=== PATIENT | male | born 1940 | race Caucasian/White ===

== ENCOUNTER → 2016-08-14 | Outpatient (CLI) | payer MEDICARE | LOC: GMAL 11:07 | PROVIDERS: ATTEND Family Medicine | DX: Z12.5 Encounter for screening for malignant neoplasm of prostate (principal) ==

== ENCOUNTER → 2016-09-07 | Outpatient (CLI) | payer MEDICARE | END | disposition home or self-care (01) | LOC: GMAL 10:20 | PROVIDERS: ATTEND Family Medicine | DX: R97.20 Elevated prostate specific antigen [PSA] (principal); C61 Malignant neoplasm of prostate ==

== ENCOUNTER → 2016-09-14 | Outpatient (CLI) | payer MEDICARE | END | disposition home or self-care (01) | LOC: GMAL 10:34 | PROVIDERS: ATTEND Family Medicine | DX: E55.9 Vitamin D deficiency, unspecified (principal) ==

== ENCOUNTER → 2016-10-02 | Outpatient (CLI) | payer MEDICARE | END | disposition home or self-care (01) | LOC: GMAL 10:38 | PROVIDERS: ATTEND Family Medicine | DX: R97.20 Elevated prostate specific antigen [PSA] (principal) ==

== ENCOUNTER → 2017-03-12 | Outpatient (CLI) | payer MEDICARE | END | disposition home or self-care (01) | LOC: GMAL 10:28 | PROVIDERS: ATTEND Family Medicine | DX: Z79.899 Other long term (current) drug therapy (principal); Z12.5 Encounter for screening for malignant neoplasm of prostate | CPT/HCPCS: 84402; 84403; G0103 ==

== ENCOUNTER → 2017-09-10 | Outpatient (CLI) | payer MEDICARE | LOC: GMAL 10:33 | PROVIDERS: ATTEND Family Medicine | DX: D51.3 Other dietary vitamin B12 deficiency anemia (principal); E55.9 Vitamin D deficiency, unspecified; R97.20 Elevated prostate specific antigen [PSA] ==

== ENCOUNTER → 2018-03-10 | Outpatient (CLI) | payer MEDICARE | LOC: GMAL 11:38 | PROVIDERS: ATTEND Family Medicine | DX: E55.9 Vitamin D deficiency, unspecified (principal); R97.20 Elevated prostate specific antigen [PSA] ==

== ENCOUNTER → 2018-09-15 | Outpatient (CLI) | payer MEDICARE | LOC: GMAL 10:39 | PROVIDERS: ATTEND Family Medicine | DX: R97.20 Elevated prostate specific antigen [PSA] (principal); E55.9 Vitamin D deficiency, unspecified ==

== ENCOUNTER → 2019-01-13 | Outpatient (CLI) | payer MEDICARE ==
--- NOTE | 2019-01-13 11:35 | US ---
EXAM DESCRIPTION: Venous,Lower Extremity LT (accession [id number]), Venous,Lower Extremity RT (accession [id number]): ULTRASOUND. CLINICAL HISTORY: ATHEROSCLEROSIS COMPARISON: Duplex venous ultrasound right lower extremity deep venous system. Duplex ultrasound bilateral lower extremity arterial system. Also MRI scan lumbar spine on this visit today. TECHNIQUE: Waldrop-scale and doppler sonographic evaluation of the deep venous system of the bilateral lower extremities. FINDINGS: No color flow or waveform is noted in the proximal left superficial femoral vein. The vein demonstrates echogenicity in the lumen, and is not compressible with the transducer. The mid and distal left superficial femoral vein demonstrate decreased venous waveform and color flow and partial compressibility. Echogenic material also noted within the lumen. Smaller venous collaterals are noted around the mid and distal vein. Doppler evaluation shows normal color flow and normal phasicity and augmentation of the left common femoral vein, popliteal vein, peroneal, and posterior tibial vein. These left lower extremity deep veins were completely compressible; normal occlusion with transducer pressure. Waldrop-scale survey showed no echogenic thrombus within these veins. Doppler evaluation shows normal color flow and normal phasicity and augmentation of the right common femoral vein, femoral vein, popliteal vein, peroneal, and posterior tibial vein. The right lower extremity deep veins were completely compressible; normal occlusion with transducer pressure. Waldrop-scale survey showed no echogenic thrombus within these veins. IMPRESSION: 1. Duplex ultrasound evaluation of the left lower extremity, superficial femoral vein, showing echogenic thrombus in the vein predominantly proximal. Mid and distal veins with less thrombus, but also collateral venous flow. This is more likely to represent chronic thrombus in the vein. 2. The remaining veins of the deep venous system in the left lower extremity, and the deep venous system veins in the right lower extremity are unremarkable CRITICAL COMMUNICATION: The critical value was discussed directly by phone with Dr. Jorge Luis Gonzalez at approximately 1130 hours, on 01/13/2019. Electronically signed by: Smith Brody MD 01/13/2019 11:33 AM CDT
--- NOTE | 2019-01-13 11:42 | US ---
EXAM DESCRIPTION: Extremity,Lower Silvio Arteries: Ultrasound. CLINICAL HISTORY: ATHEROSCLEROSIS COMPARISON: None. TECHNIQUE: Doppler evaluation of the bilateral lower extremity arterial flow waveforms and velocities. FINDINGS: Arterial waveforms in the right lower extremity are all triphasic or biphasic.. Arterial waveforms in the left lower extremity are on triphasic or biphasic.. Comments: Good velocities bilaterally. IMPRESSION: Ultrasound Doppler evaluation of the bilateral lower extremity arterial systems showing no evidence of significant atherosclerotic occlusive disease. Electronically signed by: Smith Brody MD 01/13/2019 11:40 AM CDT
--- NOTE | 2019-01-14 12:04 | MRI ---
EXAM DESCRIPTION: Lumbar Spine w/o Contrast : Magnetic Resonance Imaging. CLINICAL HISTORY: RADICULOPATHY OF LUMBAR REGION COMPARISON: LUMBAR TECHNIQUE: Multiplanar, multiple standard sequences, non contrast MRI, lumbar spine. FINDINGS: L5-S1: Anterior disc space is imaged on axial T2 series 501, image 3. Modified disc space loss. Grade 1 retrolisthesis 3 mm with broad-based disc bulge. Minimal anterior bulge. AP canal diameter 13 mm. With spondylosis on the right with disc spur complex encroaching on the right foramen and the exiting right L5 nerve. Moderate narrowing of the left foramen. Minimal posterior flavum ligament thickening. L4-L5: Severe posterior disc space loss with endplate irregularities. Anterior disc bulge. Posterior disc osteophyte bulge into the canal more to the right of midline with hypertrophy of the right facet resulting in stenosis of the right subarticular recess. Hypertrophic left facet arthrosis and thickening of the ligament with narrowing of the left subarticular recess. Advanced spondylosis to the left of midline with disc spur complex encroaching on the left foramen and abutting the exiting left L4 nerve. Mild spondylosis on the right and moderate narrowing of the right neural foramen. L3-L4: Significant posterior disc space narrowing with trace retrolisthesis. Moderate to advanced midline and left paracentral spondylosis. Anterior disc bulge and spurs more prominent to the left of midline. Disc osteophyte complex narrowing the left foramen. Moderate narrowing of the right foramen. Bilateral mild facet arthrosis and hypertrophy and posterior ligament thickening. Mild canal narrowing. L2-L3: Marked disc space loss nearly fused on the left. Trace retrolisthesis. Anterior disc marginal spurs and bulging. Inferior L2 endplate circumscribed hyperintense T1 and T2 object consistent with a hemangioma. Left facet hypertrophic arthrosis and thickening of the ligament with moderate narrowing of the left foramen. Mild narrowing of the right foramen. L1-L2: Moderate disc space loss mostly in the midline with inferior L1 Schmorl's node. Moderate spondylosis. Anterior disc bulge with endplate ridging. Minimal posterior disc osteophyte bulge. Bilateral hypertrophic facet arthrosis and thickened ligaments with mild canal narrowing. Mild narrowing left foramen and moderate narrowing right foramen. Conus terminates at this level with normal signal. T12-L1: Disc desiccation with endplate Schmorl's nodes in the midline into the right of midline. Anterior disc bulge and endplate ridging to the right of midline. Minimal bilateral facet arthrosis and ligament hypertrophy. Mild canal narrowing. Bilateral foramina are patent. Normal signal in the distal cord. L2-L5 dextroscoliosis. T11- L2, and L5-S1 levoscoliosis L1-L3 kyphosis.. Paravertebral soft tissues muscle atrophy more inferiorly and also on the left side of the L4 vertebral body.. Inhomogeneous marrow signal in most of the vertebral bodies and the posterior elements. No abnormal marrow edema signal. Vertebral bodies are not compressed at any level. IMPRESSION: 1. Moderate scoliosis. Multiple levels of moderate spondylosis, disc space loss, disc desiccation, hypertrophic facet arthrosis and flavum ligament thickening. 2. Spondylosis on the right at L5-S1 with disc spur complex encroaching on the right foramen and the exiting right L5 nerve. 3. Left side disc spur complex at L4-L5 encroaching on the left foramen and abutting the left L4 nerve. Right posterior disc spur complex in the canal creating right subarticular recess stenosis, possible compromise descending right L5 nerve. 4. Diffuse marrow inhomogeneity which may be a result of marrow reconversion which can be related to smoking and chronic illness and metabolic disease. Electronically signed by: Smith Brody MD 01/14/2019 12:02 PM CDT
== END ==
LOC: US 09:00
PROVIDERS: ATTEND Family Medicine
DX: M54.16 Radiculopathy, lumbar region (principal); I70.219 Atherosclerosis of native arteries of extremities with intermittent claudication, unspecified extremity; I82.412 Acute embolism and thrombosis of left femoral vein

== ENCOUNTER → 2019-01-30 | Outpatient (CLI) | payer MEDICARE ==
--- NOTE | 2019-01-30 17:34 | MRI ---
EXAM DESCRIPTION: Cervical Spine CLINICAL HISTORY: Cervicalgia COMPARISON: None Available. TECHNIQUE: MRI of the cervical spine is performed according to our usual protocol. FINDINGS: Sagittal T2 images reveal decreased signal intensity within the intervertebral discs with loss of disc height consistent with advanced disc degeneration at C4-5, C5-6 and C6-7 and upper thoracic disc levels. Degenerative retrolisthesis of C4 on C5 measures 3 mm. Normal T2 appearance of the cervical cord. Posterior discal abnormalities are most prominent at the C4-5 and C6-7 levels. Sagittal T1 images show benign marrow signal characteristics. Advanced facet degenerative changes especially left C3-4 with large osteophyte. Normal T1 appearance of the cervical and upper thoracic spinal cord. Normal alignment of the vertebral bodies and facets. Sagittal STIR images are positive for mild edema consistent with stress reaction around fused right C5-6 facet joint. No paraspinous fluid collection or cystic lesion. Axial images were obtained to evaluate the disc levels. C2-3: Mild posterior annular bulge with right lateral exenteration. No spinal stenosis. Mild bilateral neural foraminal narrowing. Facets appear markedly hypertrophic. Normal appearance of the cord at this level. C3-4: Mild diffuse posterior disc/osteophyte complex without spinal stenosis. Severe left neural foraminal narrowing is related to facet spurring with large exuberant left-sided osteophyte formation. Right neural foramen is widely patent. Normal appearance of the cord at this level. C4-5: Moderately severe diffuse posterior disc/osteophyte complex narrows the AP diameter of the spinal canal to 8.5 mm. There is midline accentuation or superimposed protrusion extending inferiorly behind the upper endplate of C5. This measures 3 mm in AP dimension and 7 mm in mediolateral with (image 17, series 601). Mild flattening of the cord with effacement of CSF thecal sac at this level. There is severe bilateral neural foraminal narrowing related to uncinate hypertrophy more than facet degenerative change posterior left lateral chronic calcified disc herniation or marginal osteophyte measures 4 mm in AP dimension and severely narrows the entry zone to the left neural foramen (image 18, series 601). C5-6: Normal posterior disc margin with no spinal stenosis or neural foraminal narrowing. This disc level appears fused or partially fused. Fused right facet joint. Normal appearance of the cord at this level. C6-7: Moderate diffuse posterior disc/osteophyte complex without significant spinal stenosis. Neural foraminal narrowing is mild bilaterally. Facets appear hypertrophic right more than left. Normal appearance of the cord at this level. C7-T1: Normal posterior disc margin with no spinal stenosis or neural foraminal narrowing. Mild facet hypertrophy bilaterally. Normal appearance of the cord at this level. IMPRESSION: Degenerative C4 on C5 retrolisthesis with mild spinal stenosis and chronic superimposed midline and posterior leftward chronic disc protrusions. Severe bilateral neural foraminal narrowing bilaterally at C4-5 and on the left at C3-4. Electronically signed by: Dante Sinha MD 01/30/2019 5:32 PM CDT
== END ==
LOC: MRI 14:00
PROVIDERS: ATTEND Family Medicine
DX: M50.321 Other cervical disc degeneration at C4-C5 level (principal); M50.221 Other cervical disc displacement at C4-C5 level; M48.02 Spinal stenosis, cervical region

== ENCOUNTER 2019-02-07 07:08 | Emergency (ER) | payer MEDICARE ==
--- NOTE | 2019-02-07 07:34 | ED.PDOC ---
History of Present Illness - General Chief Complaint: Abdominal Pain Stated Complaint: nausea, food intolerance r/t possible cancer Time Seen by Provider: 02/07/19 07:16 Source: patient Exam Limitations: no limitations - History of Present Illness Initial Comments: Alfonso Guy 78 y/o male stated that had no appetite for the last 2 1/2 weeks then was sent to [facility] for further evaluation done and had multiple sturdies done Scans,EGD,blood work but stated had felt the same unable to eat since some bitter taste on his tongue and feeling of nausea unable to get anyt kellen down.Had also weight loss of 27 pounds for the last one month.No diarrhea,fever. Timing/Duration: other - 2 1/2 weeks Severity: moderate Improving Factors: nothing Worsening Factors: nothing Associated Symptoms: other - see hpi Allergies/Adverse Reactions: Allergies NO KNOWN ALLERGY Allergy (Verified 07/19/12 09:33) Home Medications: Ambulatory Orders RX: Aspirin [Baby Aspirin] 81 mg PO QD 05/26/15 Atorvastatin Calcium [Lipitor] 40 mg PO BEDTIME 02/07/19 Levofloxacin [Levaquin] 750 mg PO DAILY 02/07/19 RX: Pantoprazole Sodium 40 mg PO DAILY 02/07/19 Tramadol HCl 50 mg PO Q6H PRN 02/07/19 Review of Systems - Review of Systems Constitutional: States: malaise, other - anorexia,weight loss-27 pounds x 1 mo. Gastrointestinal/Abdominal: States: nausea All other Systems: Reviewed and Negative, No Change from Baseline Past Medical History (General) - Patient Medical History Hx Seizures: No Hx Stroke: No Hx Asthma: No Hx of COPD: No Hx Cardiac Disorders: No Hx Congestive Heart Failure: No Hx Pacemaker: No Hx Hypertension: Yes Hx Thyroid Disease: No Hx Diabetes: No Hx Gastroesophageal Reflux: Yes Hx MRSA: No Surgical History: other - removal of benign tumor head - Vaccination History Hx Tetanus, Diphtheria Vaccination: No Hx Influenza Vaccination: Yes - 2018 Hx Pneumococcal Vaccination: Yes - 2018 - Social History Hx Tobacco Use: Yes Hx Alcohol Use: No Hx Substance Use: No Hx Physical Abuse: No Hx Emotional Abuse: No - Activities of Daily Living Grooming Ability: Independent Eating (Feeding) Ability: Independent Toileting Ability: Independent Family Medical History - Family History Mother Family History: No Known Hx Family Hypertension: Yes - parents Physical Exam - Physical Exam General Appearance: Alert, Comfortable, No apparent distress Eye Exam: bilateral normal Ears, Nose, Throat: hearing grossly normal, normal ENT inspection, normal pharynx Neck: supple, normal inspection Respiratory: lungs clear, normal breath sounds, no respiratory distress Cardiovascular/Chest: normal peripheral pulses, regular rate, rhythm, no JVD, systolic murmur Peripheral Pulses: radial,right: 2+, radial,left: 2+ Gastrointestinal/Abdominal: non tender, soft, no organomegaly Extremity: no pedal edema, no calf tenderness Neurologic: alert, oriented x 3 Skin Exam: normal color, warm/dry Progress - Progress Progress: 02/07/19 07:51 02/07/19 07:35 IV Care:Saline Lock per Protoc QSHIFT CARDIAC PANEL,ER Stat HEPATIC FUNCTION PANEL Stat Multiple Vitamin Inj [MVI Injectable] 10 ml Sodium Chloride 0.9% 1000ML [Ns 1000 ml] 1,000 ml IVPB ONCE URINALYSIS Stat 02/07/19 07:39 C-REACTIVE PROTEIN Stat LIPASE Stat ERYTHROCYTE SEDIMENTATION RATE Stat 02/07/19 07:40 TSH [THYROID STIMULATING HORMONE] Stat 02/07/19 08:00 Multiple Vitamin Inj [MVI Injectable] 10 ml Thiamine HCl Inj 100 mg Sodium Chloride 0.9% 1000ML [Ns 1000 ml] 1,000 ml IVS Q24H Vital Signs - 8 hr 02/07/19 07:12 Temperature 98.6 F Respiratory 16 Rate Blood Pressure 144/91 [left brachial] O2 Sat by Pulse 95 Oximetry - Results/Orders Results/Orders: Laboratory Tests 02/07/19 02/07/19 02/07/19 08:06 08:06 08:06 WBC 7.7 RBC 3.67 L Hgb 10.7 L Hct 31.9 L MCV 86.9 MCH 29.1 MCHC 33.5 RDW 13.8 Plt Count 330 MPV 8.8 Absolute Neuts (auto) 5.10 Absolute Lymphs (auto) 1.60 Absolute Monos (auto) 0.60 Absolute Eos (auto) 0.30 Absolute Basos (auto) 0.10 Neutrophils % 66.6 Lymphocytes % 20.9 Monocytes % 7.3 Eosinophils % 3.8 Basophils % 1.4 ESR 101 H PT 10.7 INR 1.07 PTT (SP) 31.0 Sodium 130 L Potassium 4.2 Chloride 96 L Carbon Dioxide 19 L Anion Gap 19.2 H BUN 12 Creatinine 1.07 BUN/Creatinine Ratio 11.2 Random Glucose 80 Serum Osmolality 259.5 L Calcium 8.6 Magnesium 1.6 L Total Bilirubin 0.8 Direct Bilirubin 0.1 Indirect Bilirubin 0.7 AST 22 ALT 18 Alkaline Phosphatase 68 Creatine Kinase 53 CK-MB (CK-2) 1.9 CK-MB (CK-2) % Not Reportable Troponin I < 0.02 C-Reactive Protein 14.0 H* Serum Total Protein 6.2 L Albumin 2.7 L Lipase 23 TSH 02/07/19 08:06 WBC RBC Hgb Hct MCV MCH MCHC RDW Plt Count MPV Absolute Neuts (auto) Absolute Lymphs (auto) Absolute Monos (auto) Absolute Eos (auto) Absolute Basos (auto) Neutrophils % Lymphocytes % Monocytes % Eosinophils % Basophils % ESR PT INR PTT (SP) Sodium Potassium Chloride Carbon Dioxide Anion Gap BUN Creatinine BUN/Creatinine Ratio Random Glucose Serum Osmolality Calcium Magnesium Total Bilirubin Direct Bilirubin Indirect Bilirubin AST ALT Alkaline Phosphatase Creatine Kinase CK-MB (CK-2) CK-MB (CK-2) % Troponin I C-Reactive Protein Serum Total Protein Albumin Lipase TSH 4.35 Discuss case with Hospitalist Blu Vann gor admit but called up primary Md to transfer patient back to [facility] Departure - Departure Clinical Impression: Malaise and fatigue, Anorexia, 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, Hyponatremia, Elevated erythrocyte sedimentation rate, CRP elevated Time of Disposition: 10:26 Disposition: Transfer to Hospital Condition: Fair Departure Forms: Patient Portal Self Enrollment Referrals: Jorge Luis Gonzalez III, MD [Primary Care Provider] - 1-2 Weeks Home Medications: Ambulatory Orders RX: Aspirin [Baby Aspirin] 81 mg PO QD 05/26/15 Atorvastatin Calcium [Lipitor] 40 mg PO BEDTIME 02/07/19 Levofloxacin [Levaquin] 750 mg PO DAILY 02/07/19 RX: Pantoprazole Sodium 40 mg PO DAILY 02/07/19 Tramadol HCl 50 mg PO Q6H PRN 02/07/19 Transfer to Outside Facility - Transfer Information Accepting Provider:: dr. Kalia Constantino-Abilio Roque Accepting Facility: [facility] Reason for Transfer: required specialist not available - oncologist
[2019-02-07] MEDS ORDERED: PROCHLORPERAZINE INJ 10 MG/2 ML VIAL IV ONE (07:35)
[2019-02-07] MEDS ORDERED: DEXAMETHASONE INJ 4 MG/ML VIAL IV ONE (07:35)
[2019-02-07] MEDS ORDERED: MULTIPLE VITAMIN INJ 10 ML in SODIUM CHLORIDE 0.9% 1000ML 1,000 ML IVPB ONE (07:35)
[2019-02-07] MEDS ORDERED: MULTIPLE VITAMIN INJ 10 ML, THIAMINE HCL INJ 100 MG in SODIUM CHLORIDE 0.9% 1000ML 1,00... IVS SCH (08:00)
[2019-02-07] MEDS ORDERED: ENOXAPARIN SODIUM 30 MG/0.3 ML SYG SUBCU ONE (08:09)
[2019-02-07] MEDS ORDERED: SODIUM CHLORIDE 0.9% 1000ML 1,000 ML ONE (08:11)
[2019-02-07] MEDS ORDERED: MULTIPLE VITAMIN 10 ML VIAL ONE (08:12)
[2019-02-07] MEDS ORDERED: THIAMINE HCL INJ 100 MG/ML VIAL ONE (08:24)
[2019-02-07] MEDS ORDERED: traMADol HCL 50 MG TAB ONE (08:36)
[2019-02-07] MEDS ORDERED: traMADol HCL 50 MG TAB PO ONE (08:40)
[2019-02-07] MEDS ORDERED: MAGNESIUM SULFATE PREMIX 2GM 2 GM in PREMIX BAG 1 BAG IVPB ONE (08:51)
[2019-02-07] MEDS ORDERED: MAGNESIUM SULFATE PREMIX 2GM 50 ML IVPB ONE (09:27)
[2019-02-07 10:50] VITALS: BP 105/69; TEMP 98.9; O2SAT 99
== END 2019-02-07 10:50 | disposition short-term general hospital (02) ==
LOC: ER 07:08
DX: R53.81 Other malaise (principal); R53.83 Other fatigue; R63.0 Anorexia; E87.1 Hypo-osmolality and hyponatremia; D44.10 Neoplasm of uncertain behavior of unspecified adrenal gland; R70.0 Elevated erythrocyte sedimentation rate; R79.82 Elevated C-reactive protein (CRP); I10 Essential (primary) hypertension; K21.9 Gastro-esophageal reflux disease without esophagitis; Z87.891 Personal history of nicotine dependence
CPT/HCPCS: 36415; 80048; 80076; 82550; 82553; 83690; 84443; 84484; 85025; 85610; 85651; 85730; 86140; J0780; J1100; J2060; J3411; J3475; J7030